=== PATIENT | female | born 1980 | race Hispanic/Latino ===

== ENCOUNTER → 2025-04-05 | Outpatient (CLI) | payer OTHER ==
[2025-04-05 22:35] VITALS: PULSE 78; RESP 14
[2025-04-05 23:00] VITALS: PULSE 76; RESP 14
[2025-04-05 23:30] VITALS: PULSE 74; RESP 16
[2025-04-06] VITALS (11 sets, daily range): PULSE 60–78; RESP 14–26
== END | disposition home or self-care (01) ==
LOC: SLP 21:00
PROVIDERS: ATTEND Internal Medicine Cardiovascular Disease
DX: G47.33 Obstructive sleep apnea (adult) (pediatric) (principal); R06.83 Snoring; R53.83 Other fatigue; F41.9 Anxiety disorder, unspecified
CPT/HCPCS: 95810

== ENCOUNTER → 2025-05-21 | Outpatient (CLI) | payer OTHER ==
[2025-05-21 23:32] VITALS: PULSE 68; RESP 16
[2025-05-21 23:48] VITALS: PULSE 73; RESP 15
[2025-05-22] VITALS (15 sets, daily range): PULSE 64–81; RESP 13–17
== END | disposition home or self-care (01) ==
LOC: EDUNIT# 04-10 20:30 → SLP 22:37
PROVIDERS: ATTEND Internal Medicine Cardiovascular Disease
DX: G47.33 Obstructive sleep apnea (adult) (pediatric) (principal); R06.83 Snoring; R53.83 Other fatigue
CPT/HCPCS: 95811